=== PATIENT | male | born 1990 | race Caucasian/White ===

== ENCOUNTER 2020-12-29 17:49 | Emergency (ER) | payer OTHER, SELFPAY ==
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
== END 2020-12-30 05:18 | disposition left against medical advice (07) ==
DX: Z53.21 Procedure and treatment not carried out due to patient leaving prior to being seen by health care provider (principal)
CPT/HCPCS: 99199

== ENCOUNTER 2020-12-29 20:52 | Emergency (ER) | payer OTHER, SELFPAY ==
--- NOTE | 2020-12-29 20:59 | PC.NURSE ---
Addendum entered by Salina Marie RN 12/29/20 21:03: Pt had ambulatory gait, no sign of distress. Original Note: Pt walked out of ED at this time without being triaged and without seeing provider. No IV in place.
== END 2020-12-30 05:20 | disposition left against medical advice (07) ==
DX: Z53.21 Procedure and treatment not carried out due to patient leaving prior to being seen by health care provider (principal)
CPT/HCPCS: 99199

== ENCOUNTER 2024-03-24 14:03 | Emergency (ER) | payer OTHER, SELFPAY ==
[2024-03-24 14:58] VITALS: BP 122/79; PULSE 75; RESP 16; TEMP 36.2; O2SAT 100
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
[2024-03-24] MEDS: cefTRIAXone 500 MG, LIDOCAINE 1% LOCAL INJ 1 ML IM (15:49)
[2024-03-24 21:13] LABS: Trichomonas Vag PCR NOT DETECTED (NOT DETECTE)
[2024-03-24 21:39] LABS: Chlamydia trachomatis NOT DETECTED (NOT DETECTE); Neisseria gonorrhoeae PCR NOT DETECTED (NOT DETECTE)
== END 2024-03-24 15:55 | disposition home or self-care (01) ==
PROVIDERS: Emergency Provider Nurse Practitioner Family
DX: Z11.3 Encounter for screening for infections with a predominantly sexual mode of transmission (principal); R39.198 Other difficulties with micturition
CPT/HCPCS: 87491; 87591; 87661; 99203; G0463; J0696; J2003